=== PATIENT | male | born 1960 | race Caucasian/White ===

== ENCOUNTER 2021-11-20 12:44 | Emergency (ER) | payer BC, SELFPAY ==
--- NOTE | ~2021-11-20 | XR_ITS ---
EXAMINATION: XR abdomen/kub 1V DATE: 11/20/2021 13:54 INDICATION: Kidney stone. TECHNIQUE: A supine view of the abdomen on 2 radiographs was obtained. COMPARISON: CT abdomen and pelvis 11/20/2021 FINDINGS: There are no dilated loops of bowel. There are phleboliths in the pelvis. The stones in dis emile left ureter and left kidney seen by CT are not visible. IMPRESSION: 1. No visible urolithiasis. Reviewed, dictated and finalized at location A. IMPRESSION: 1. No visible urolithiasis.
--- NOTE | ~2021-11-20 | CT_ITS ---
EXAMINATION: CT abdomen pelvis wo con DATE: 11/20/2021 13:36 INDICATION: Left flank pain. Scant urination. History of pancreatitis. TECHNIQUE: Computed tomography (CT) of the abdomen and pelvis was performed without intravenous contr ast. The dose-length product was 433.57 mGy-cm. Automated exposure control and iterative reconstructi on technique were employed. COMPARISON: CT dated 12/05/2017 FINDINGS: Lung bases are unremarkable. Heart size normal. No significant pleural or pericardial effus ion. There is a punctate calcification in the distal aspect of the left ureter, images 143-144. There is mild left hydronephrosis. There is moderate left perinephric and periureteral edema. There is non obstructing stones in the left kidney. There is a 3.5 cm low-density lesion in the left kidney, most likely benign cysts. No significant vascular abnormality. No lymphadenopathy. Nonobstructive bowel gas pattern. The liver, spleen, pancreas, adrenal glands and right kidney are unremarkable. There is osteoarthriti s of the hips. There are multiple lytic lesions of the pelvis and visualized aspects of the spine, navarrete spicious for metastatic disease or myeloma. IMPRESSION: 1. Punctate calcification measuring 2 mm distal aspect of the left ureter, suspicious for distal uret eral stone. Mild left hydronephrosis with periureteral and perinephric edema. Cannot exclude ascendin g urinary tract infection. 2: Innumerable lytic lesions of the spine and pelvis, suspicious for metastatic disease versus myelom a. Comment follow-up clinical evaluation. 3: Nonobstructing left nephrolithiasis. Reviewed, dictated and finalized at location A. IMPRESSION: 1. Punctate calcification measuring 2 mm distal aspect of the left ureter, susp icious for distal ureteral stone. Mild left hydronephrosis with periureteral an d perinephric edema. Cannot exclude ascending urinary tract infection. 2: Innumerable lytic lesions of the spine and pelvis, suspicious for metastatic disease versus myeloma. Comment follow-up clinical evaluation. 3: Nonobstructing left nephrolithiasis.
[2021-11-20 12:57] VITALS: BP 167/76; PULSE 76; RESP 14; TEMP 36.8; O2SAT 100
--- NOTE | 2021-11-20 13:15 | ED.GENADULT ---
HPI - General Adult General Chief complaint: Urogenital-Male Stated complaint: left flank pain Time Seen by Provider: 11/20/21 13:11 Source: RN notes reviewed History of Present Illness HPI narrative: Patient presents emergency room from home for left flank pain. Patient states pain began suddenly around 8 AM this morning. The pain is located left flank and radiates around down his left abdomen and testicle. The pain is described as sharp and stabbing. States that he did take Aleve at home for the pain with no relief denies any fevers or chills nausea vomiting diarrhea or any other symptoms denies any previous history of kidney stone Related Data Allergies Allergy/AdvReac Type Severity Reaction Status Date / Time No Known Allergies Allergy Verified 03/14/21 10:23 Review of Systems Review of Systems: Gen.: Denies fevers or chills ENT: Denies congestion Respiratory: Denies shortness of breath or cough CV: Denies chest pain or palpitations GI: D reports left lower quadrant abdominal pain denies nausea, emesis or diarrhea denies burning, urgency, frequency or hematuria Musculoskeletal: Reports left flank pain Neuro: Denies numbness, tingling, weakness or focal weakness Skin: Denies rash Except as documented, all other systems reviewed and negative PMFSH Past Medical History Medical History BPH w urinary obs/LUTS Chronic back pain History of pancreatitis Hyperlipidemia Lumbar spondylosis Pancreatitis Prediabetes Surgical History Surgical History History of appendectomy 1978 History of cataract surgery 2012 - / Family History Family History Other Family history of hypercholesterolemia Social History Social History Smoking status: Never smoker Alcohol intake: current Alcohol use details: drinks 2 beers occansionally Substance use: never Substance use type: does not use Gender identity (if verbalized by the patient): Male Exam Narrative: APPEARANCE: No acute distress, nontoxic, resting in bed EYES: EOMI HEENT: Normocephalic, atraumatic, OMM RESPIRATORY: No respiratory distress Clear to auscultation bilaterally with no rhonchi wheezing or rales. CARDIOVASCULAR: Regular rate and rhythm without murmurs rubs or gallops. ABDOMINAL: Soft, nontender, nondistended, no rebound or guarding left flank tenderness MUSCULOSKELETAl: Moves all extremities. No clubbing, cyanosis or edema. NEURO: Awake and alert. Following commands, speech normal, no focal deficits SKIN:: Warm, dry. No rashes lesions or abrasions PSYCHIATRIC: Normal affect/mood, Course Course Emergency Course: Called and discussed with BONDING MACHINE OPERATOR for Dr. Emery regarding patient's presentation work-up we discussed the patient CT showing lytic lesions need for further outpatient work-up agrees with plan for discharge with follow-up as an outpatient Patient states pain is improved at this time I discussed with patient and family results of CT scan showing kidney stone as well as lytic lesions and need for follow-up for evaluation metastatic disease versus myeloma versus other patient is in agreement Discussed with patient results of workup and diagnosis. Discussed need for follow-up with primary care, proper use of medication, and reasons to return to the emergency department. Patient understands and agrees to current treatment plan Vital Signs Vital signs: Vital Signs Temperature 98.2 F 11/20/21 12:57 Pulse Rate 76 11/20/21 12:57 Respiratory Rate 14 11/20/21 12:57 Blood Pressure 167/76 H 11/20/21 12:57 Pulse Oximetry 100 11/20/21 12:57 Oxygen Delivery Room Air 11/20/21 12:57 Temperature 98.2 F 11/20/21 12:57 Pulse Rate 76 11/20/21 12:57 Respiratory Rate 14 11/20/21 12:57 Blood Pressure 167
[2021-11-20] MEDS: ONDANSETRON INJ 4 MG/2 ML VIAL IV PUSH (13:28)
[2021-11-20] MEDS: MORPHINE SULFATE (*CRX) 4 MG/ML INJ IV PUSH (13:28)
[2021-11-20] MEDS: SODIUM CHLORIDE 0.9% IV 1,000 ML 999 ML IV CONT (13:28)
[2021-11-20 13:44] LABS: Basophils Percent Auto 0.2 % (0.2-1.2); Hematocrit 43.6 % (42.0-52.0); Hemoglobin 14.7 g/dL (14.0-18.0); Immature Granulocyte Absolute 0.04 K/mm3 (0.00-0.031); Immature Granulocyte Percent A 0.4 % (0-0.5); Lymphocytes Absolute Auto 1.59 K/mm3 (0.9-3.2); Lymphocytes Percent Auto 14.8 % (18.3-44.2); Mean Corpuscular HGB Conc 33.7 g/dl (32-36); Mean Corpuscular Volume 94.8 fl (80-100); Mean Platelet Volume 10.5 fl (7.4-10.4); Monocytes Absolute Auto 0.7 K/mm3 (0.1-0.6); Monocytes Percent Auto 6.6 % (2.6-8.5); Neutrophils Absolute Auto 8.4 K/mm3 (1.3-6.7); Platelet Count Result 174 k/mm3 (150-375); Red Cell Distribution Width 13.2 % (11.5-14.5); White Blood Count 10.8 K/mm3 (4.5-10.0)
[2021-11-20 13:56] LABS: Alanine Aminotransferase 23 U/L (6-50); Albumin Level 4.1 g/dL (3.5-5.1); Alkaline Phosphatase 75 U/L (38-126); Anion Gap 8 mmol/L (8-16); Aspartate Amino Transferase 26 U/L (17-59); Bilirubin,Total 1.4 mg/dL (0.2-1.3); Blood Urea Nitrogen 15 mg/dL (9-20); Calcium 8.6 mg/dL (8.4-10.2); Carbon Dioxide 24 mmol/L (22-30); Chloride 104 mmol/L (98-107); Estimated CRCL calculation 92 ml/min; Estimated Glomerular Filt Rate > 60; Glucose 106 mg/dL (65-110); Potassium 3.8 mmol/L (3.4-5.0); Sodium 136 mmol/L (137-145)
[2021-11-20 14:00] LABS: Appearance Urine Clear (Clear); Bilirubin Urine Negative (Negative); Color Urine Yellow (Yellow); Glucose Urine UA Negative (Negative); Ketones Urine Negative (Negative); Leukocyte Esterase Ur Negative LEU/UL (Negative); Nitrate Urine Negative (Negative); Protein Urine Negative (Negative); Specific Grav Ur <= 1.005 (1.001-1.035); Urobilinogen Urine 0.2 mg/dL (<2.0); pH Urine 5.5 (5.0-9.0)
[2021-11-20 14:04] LABS: Add Urine Microscopic? YES; Blood Urine Trace-Intact (Negative)
[2021-11-20 14:08] LABS: Mucus Urine Rare /lpf; RBC Urine 0-2 /hpf (0-2); Squamous Epithelial Cell Urine Rare /hpf (Few); WBC Urine 0-3 /hpf
[2021-11-20] MEDS: TAMSULOSIN HCL 0.4 MG CAPSULE PO (14:39)
[2021-11-20] MEDS: KETOROLAC 30 MG/ML VIAL (*BKC) IV PUSH (14:44)
[2021-11-20 15:28] VITALS: BP 138/78; PULSE 88; RESP 16; O2SAT 98
== END 2021-11-20 15:44 | disposition home or self-care (01) ==
PROVIDERS: Emergency Provider Emergency Medicine; PCP Family Medicine
DX: N13.2 Hydronephrosis with renal and ureteral calculous obstruction (principal); N40.1 Benign prostatic hyperplasia with lower urinary tract symptoms; N13.8 Other obstructive and reflux uropathy; E78.5 Hyperlipidemia, unspecified; R73.03 Prediabetes; Z98.42 Cataract extraction status, left eye; Z98.41 Cataract extraction status, right eye
CPT/HCPCS: 36415; 74018; 74176; 80053; 81001; 85025; 96361; 96374; 96375; 99284; A9270; J1885; J2270; J2405; J7030

== ENCOUNTER 2021-11-23 22:42 | Emergency (ER) | payer BC, SELFPAY ==
--- NOTE | ~2021-11-23 | CT_ITS ---
EXAMINATION: CT abdomen pelvis wo con DATE: 11/24/2021 00:13 INDICATION: Left flank pain TECHNIQUE: Computed tomography (CT) of the abdomen and pelvis was performed without intravenous contr ast. The dose-length product (DLP) was 1236.10 mGy-cm. Automated exposure control and iterative recon struction technique were employed. COMPARISON: 11/20/2021, 12/05/2017 FINDINGS: There is a small sliding hiatal hernia. A stable 4 mm nodule of the left lower lobe is cons istent with old granulomatous disease. The heart size is normal. The liver, spleen, pancreas, gallbla dder, and adrenal glands are normal. The right kidney is unremarkable. There are stones in the left r enal pelvis measuring up to 11 mm. There is mild left hydroureteronephrosis continuing into a subtle stone at the ureterovesicular junction. There is periureteral and perinephric fat stranding. There is a 3.0 cm cyst of the left kidney. No pathologically enlarged abdominal or pelvic lymph nodes are sadie ntified. There is no free intraperitoneal gas or evidence of bowel obstruction. There is mild lumbar spondylosis. IMPRESSION: 1. Subtle stone at the left ureterovesicular junction causing mild left hydroureteronephrosis and 11 mm stone in left renal pelvis. Periureteral and perinephric fat stranding may reflect superimposed py elonephritis and urinary tract infection. Reviewed, dictated and finalized at location A. IMPRESSION: 1. Subtle stone at the left ureterovesicular junction causing mild left hydrour eteronephrosis and 11 mm stone in left renal pelvis. Periureteral and perinephr ic fat stranding may reflect superimposed pyelonephritis and urinary tract infe ction.
[2021-11-23 22:44] VITALS: BP 182/81; PULSE 81; RESP 16; TEMP 36.3; O2SAT 100
[2021-11-23 23:00] LABS: Basophils Percent Auto 0.4 % (0.2-1.2); Hematocrit 41.7 % (42.0-52.0); Hemoglobin 14.1 g/dL (14.0-18.0); Immature Granulocyte Absolute 0.02 K/mm3 (0.00-0.031); Immature Granulocyte Percent A 0.2 % (0-0.5); Lymphocytes Absolute Auto 1.19 K/mm3 (0.9-3.2); Lymphocytes Percent Auto 14.1 % (18.3-44.2); Mean Corpuscular HGB Conc 33.8 g/dl (32-36); Mean Corpuscular Hemoglobin 32.3 pg (26-34); Mean Corpuscular Volume 95.6 fl (80-100); Mean Platelet Volume 10.3 fl (7.4-10.4); Monocytes Absolute Auto 0.7 K/mm3 (0.1-0.6); Monocytes Percent Auto 8.3 % (2.6-8.5); Neutrophils Absolute Auto 6.5 K/mm3 (1.3-6.7); Platelet Count Result 163 k/mm3 (150-375); Red Blood Count 4.36 M/mm3 (4.6-6.20); Red Cell Distribution Width 13.2 % (11.5-14.5); White Blood Count 8.4 K/mm3 (4.5-10.0)
[2021-11-23 23:09] LABS: Appearance Urine Clear (Clear); Bilirubin Urine Negative (Negative); Blood Urine Trace-lysed (Negative); Color Urine Yellow (Yellow); Glucose Urine UA Negative (Negative); Ketones Urine Negative (Negative); Leukocyte Esterase Ur Negative LEU/UL (Negative); Nitrate Urine Negative (Negative); Protein Urine Negative (Negative); Specific Grav Ur <= 1.005 (1.001-1.035); Urobilinogen Urine 0.2 mg/dL (<2.0); pH Urine 5.5 (5.0-9.0)
[2021-11-23 23:10] LABS: Alanine Aminotransferase 20 U/L (6-50); Albumin Level 4.1 g/dL (3.5-5.1); Alkaline Phosphatase 75 U/L (38-126); Anion Gap 7 mmol/L (8-16); Aspartate Amino Transferase 25 U/L (17-59); Bilirubin,Total 1.1 mg/dL (0.2-1.3); Blood Urea Nitrogen 16 mg/dL (9-20); Calcium 9.1 mg/dL (8.4-10.2); Carbon Dioxide 28 mmol/L (22-30); Chloride 101 mmol/L (98-107); Estimated CRCL calculation 53 ml/min; Estimated Glomerular Filt Rate 44; Glucose 128 mg/dL (65-110); Potassium 3.9 mmol/L (3.4-5.0); Sodium 136 mmol/L (137-145)
[2021-11-23 23:19] VITALS: O2SAT 97
[2021-11-23 23:23] LABS: Mucus Urine Rare /lpf; RBC Urine 0-2 /hpf (0-2); WBC Urine 0-3 /hpf
[2021-11-23 23:30] VITALS: O2SAT 98
[2021-11-23 23:30] LABS: Add Urine Microscopic? YES
[2021-11-23 23:31] VITALS: BP 147/68; O2SAT 97
[2021-11-23 23:45] VITALS: O2SAT 97
[2021-11-24] VITALS (16 sets, daily range): BP systolic 122–137; BP diastolic 62–67; O2SAT 94–97
[2021-11-24] MEDS: MORPHINE SULFATE (*CRX) 4 MG/ML INJ IV PUSH (00:02)
--- NOTE | 2021-11-24 03:01 | ED.BACK ---
HPI - Back Pain/Injury General Chief Complaint: Abdominal Pain Stated Complaint: left flank pain, known kidney stone Time Seen by Provider: 11/23/21 23:39 History of Present Illness HPI Narrative: 61yoM p/w L flank pain, h/o recent kidney stone seen here, saw uro today and sx had all improved but several hours ago, pain came back feels exactly the same as before, and left lower back that seems to radiate to the pelvis. Tried taking ibuprofen but it did not help, he is out of the [place] from before. Related Data Allergies Allergy/AdvReac Type Severity Reaction Status Date / Time No Known Allergies Allergy Verified 11/23/21 23:20 Review of Systems Review of Systems: CONST: No fever. HEENT: No sore throat C/V: No chest pain RESP: No cough GI: Reports left flank/pelvic pain : No hematuria M/S: No joint pain. SKIN: No rash. NEURO: [No headache or focal numbness or weakness] PSYCH: [No depression] [facility] Past Medical History Medical History BPH w urinary obs/LUTS Chronic back pain History of pancreatitis Hyperlipidemia Lumbar spondylosis Pancreatitis Prediabetes Surgical History Surgical History History of appendectomy 1978 History of cataract surgery 2012/ Family History Family History Other Family history of hypercholesterolemia Social History Social History Smoking status: Never smoker Alcohol intake: current Alcohol use details: drinks 2 beers occansionally Substance use: never Substance use type: does not use Gender identity (if verbalized by the patient): Male Exam Narrative: EXAMINATION OF ORGAN SYSTEMS/BODY AREAS: Constitutional: Vital signs per nursing GENERAL: Appears uncomfortable in bed HEAD: Normal with no signs of head trauma. EYES: EOMI, conjunctiva normal ENT: Hearing grossly intact LUNGS: Nonlabored breathing. HEART: [Regular rate and rhythm] ABD: [Soft], [nontender to palpation] EXT: Normal range of motion SKIN: [No rashes or lesions.] NEURO: [Alert and oriented x 3. No gross focal sensory or strength deficits.] PSYCH: Normal affect Course Vital Signs Vital signs: Vital Signs Temperature 97.3 F L 11/23/21 22:44 Pulse Rate 81 11/23/21 22:44 Respiratory Rate 16 11/23/21 22:44 Blood Pressure 182/81 H 11/23/21 22:44 Pulse Oximetry 100 11/23/21 22:44 Temperature 97.3 F L 11/23/21 22:44 Pulse Rate 81 11/23/21 22:44 Respiratory Rate 16 11/23/21 22:44 Blood Pressure 125/62 11/24/21 02:46 Pulse Oximetry 94 11/24/21 02:46 MDM - Back Pain/Injury MDM Narrative Medical decision making narrative: ED COURSE AND MEDICAL DECISION MAKINyo male presenting to the emergency department for acute flank pain, symptoms are concerning for likely renal colic versus pyelonephritis. Urinalysis is ordered. Morphine 4mg ordered. CT scan of the abdomen/pelvis is ordered. Labs are remarkable for: negative UA, Cr slightly elevated. On reevaluation, the patient's pain has resolved and he would like to go home at this time. CT official radiology read still pending at this time, however patient was feeling well and he didn't want to stay for the results. Patient is strongly advised to return to the emergency department for any increasing pain not improving with medications, persistent nausea vomiting, fevers or chills or for any other concerns. Patient is comfortable with this plan and was discharged in fair condition. Procedures: Pulse oximetry interpretation - not hypoxic. Review of medical records. Lab Data Result diagrams: 11/23/21 22:50 11/23/21 22:50 Labs: Lab Results 11/23/21 11/23/21 11/23/21 Range/Units 22:50 22:50 22:59 WBC 8.4 (4.5-10.0) K/mm3 RBC 4.36 L (4.6-6.20) M/mm3 Hgb 14.
== END 2021-11-24 03:25 | disposition home or self-care (01) ==
PROVIDERS: Emergency Provider Emergency Medicine; PCP Family Medicine
DX: R10.9 Unspecified abdominal pain (principal); N13.2 Hydronephrosis with renal and ureteral calculous obstruction; N40.1 Benign prostatic hyperplasia with lower urinary tract symptoms; N13.8 Other obstructive and reflux uropathy; E78.5 Hyperlipidemia, unspecified; R73.03 Prediabetes; Z98.42 Cataract extraction status, left eye; Z98.41 Cataract extraction status, right eye
CPT/HCPCS: 36415; 74176; 80053; 81001; 85025; 96374; 99284; J2270

== ENCOUNTER 2021-11-28 11:39 | Outpatient (CLI) | payer BC, SELFPAY ==
[2021-11-28 16:44] LABS: Immunoglobulin A 103 mg/dL (70-400); Immunoglobulin G 1014 mg/dL (700-1600); Immunoglobulin M 43 mg/dL (40-230)
[2021-12-01 11:05] LABS: Kappa\\Lambda Light Chains 91.03 (0.26-1.65); Lambda Light Chain 7.7 mg/L (5.7-26.3)
[2021-12-01 21:06] LABS: Albumin 3.7 g/dL (3.8-4.8); Alpha 1 Globulin 0.5 g/dL (0.2-0.3); Alpha 2 Globulin 0.8 g/dL (0.5-0.9); Beta 1 Globulin 0.4 g/dL (0.4-0.6); Gamma Globulin 0.9 g/dL (0.8-1.7); Protein, Total 6.7 g/dL (6.1-8.1)
== END 2021-11-28 11:40 | disposition home or self-care (01) ==
LOC: ANHLAB 11:40
PROVIDERS: PCP Family Medicine; Visit Provider Internal Medicine Hematology & Oncology
DX: D72.9 Disorder of white blood cells, unspecified (principal)
CPT/HCPCS: 36415; 82784; 83883; 84155; 84165

== ENCOUNTER 2021-11-30 08:09 | Outpatient (CLI) | payer BC, SELFPAY ==
--- NOTE | ~2021-11-30 | XR_ITS ---
EXAMINATION: XR bone survey comp/metastic DATE: 11/30/2021 08:57 INDICATION: Plasma cell disorder. TECHNIQUE: 30 views of a skeletal survey were obtained. COMPARISON: CT chest, abdomen, and pelvis 11/30/2021 FINDINGS: There are small lytic lesions in the left humeral diaphysis and left scapula. There are mul tiple lytic lesions in the iliac bones. There is a small lytic lesion in proximal left femur. IMPRESSION: 1. Multiple lytic lesions of bone, consistent with multiple myeloma. Reviewed, dictated and finalized at location A.
--- NOTE | ~2021-11-30 | CT_ITS ---
EXAMINATION: CT abdomen pelvis wo/w con DATE: 11/30/2021 09:26 INDICATION: Renal lesion. TECHNIQUE: Computed tomography (CT) of the abdomen and pelvis was performed without and with 130 cc O mnipaque 350 intravenous contrast. The dose-length product was 1945.43 mGy-cm. Automated exposure con trol and iterative reconstruction technique were employed. COMPARISON: CT dated 11/25/2019 FINDINGS: Lung bases are unremarkable. Heart size normal. No significant pleural or pericardial effus ion. There are nonobstructing left renal stones. There is mild left hydronephrosis with periureteral and p erinephric edema. No obstructing stone or mass identified. Prostate gland mildly prominent. Bladder w all is mildly thickened. Cannot exclude ascending urinary tract infection. There is a 3 cm nonenhanci ng left renal lesion, consistent with a cyst. There is a smaller low-density lesion in the left kidne y posteriorly, also likely benign cysts. The liver, spleen, pancreas, adrenal glands are unremarkable. There are multiple lytic lesions of the lower thoracic and lumbar spine as well as the pelvis and proximal femurs. Gallbladder is present. N onobstructive bowel gas pattern. IMPRESSION: 1. Innumerable lytic lesions of the spine, pelvis and proximal femurs, most likely metastatic disease or myeloma. Correlate for clinical history of malignancy. 2: Nonobstructing left nephrolithiasis. Mild left hydroureteronephrosis with perinephric and periuret eral edema. No obstructing stone or mass. Bladder wall mildly thickened. Cannot exclude cystitis with ascending urinary tract infection. 3: Left renal cysts. Reviewed, dictated and finalized at location B. IMPRESSION: 1. Innumerable lytic lesions of the spine, pelvis and proximal femurs, most lik summer metastatic disease or myeloma. Correlate for clinical history of malignancy . 2: Nonobstructing left nephrolithiasis. Mild left hydroureteronephrosis with pe rinephric and periureteral edema. No obstructing stone or mass. Bladder wall mi ldly thickened. Cannot exclude cystitis with ascending urinary tract infection. 3: Left renal cysts.
--- NOTE | ~2021-11-30 | CT_ITS ---
EXAMINATION: CT diagnostic chest w con DATE: 11/30/2021 13:53 INDICATION: SOB TECHNIQUE: Computed tomography (CT) of the chest was performed with 100 mL Omnipaque-350 intravenous contrast. Additional 3D reconstructions utilizing coronal maximum intensity projection (MIP) were per formed. Automated exposure control and iterative reconstruction technique were employed. The dose-juanita gth product was 333.52 mGy-cm. COMPARISON: None FINDINGS: A few 3 mm or smaller scattered bilateral pulmonary nodules. No pneumonia, pulmonary edema, pleural e ffusion or pneumothorax. Heart size is normal. No pericardial effusion. Thoracic aorta is normal in c aliber with no dissection. No pathologically enlarged thoracic lymphadenopathy. Small sliding-type hi atal hernia. 3 cm cyst at the upper pole of the left kidney. There are numerous scattered small lytic bone lesions in the spine, ribs, sternum and bilateral scapulae suspicious for multiple myeloma. IMPRESSION: 1. No acute cardiopulmonary disease. 2. Several scattered 3 mm or smaller bilateral pulmonary nodules. If the patient is low risk for lung cancer, no follow-up is needed. If the patient is high risk (i.e., history of smoking or asbestos or significant radiation exposure), optional follow-up chest CT could be considered at 12 months. 3. Numerous scattered small lytic bone lesions suspicious for multiple myeloma. Reviewed, dictated and finalized at location A. IMPRESSION: 1. No acute cardiopulmonary disease. 2. Several scattered 3 mm or smaller bilateral pulmonary nodules. If the patien t is low risk for lung cancer, no follow-up is needed. If the patient is high r isk (i.e., history of smoking or asbestos or significant radiation exposure), o ptional follow-up chest CT could be considered at 12 months. 3. Numerous scattered small lytic bone lesions suspicious for multiple myeloma.
== END 2021-11-30 08:10 | disposition home or self-care (01) ==
PROVIDERS: PCP Family Medicine; Referring Provider Internal Medicine Hematology & Oncology; Visit Provider Nurse Practitioner
DX: R91.8 Other nonspecific abnormal finding of lung field (principal); N20.0 Calculus of kidney; N28.1 Cyst of kidney, acquired
CPT/HCPCS: 71260; 74178; 77075; Q9967

== ENCOUNTER 2021-12-12 00:26 | Day surgery (SDC) | payer BC, SELFPAY ==
[2021-12-11 16:31] VITALS: BMI 31.6
--- NOTE | ~2021-12-12 | BM_ITS ---
EXAMINATION: CCL bone marrow asp w bx diag DATE: 12/12/2021 09:33 INDICATION: Lytic bone lesion of hip. TECHNIQUE: A time-out was performed to verify the patient's name, date of , and procedure to b e performed. The procedure including the risks, benefits, and alternatives was discussed with the pat ient. Risks discussed included bleeding and infection. The patient understood the risks and agreed to proceed. The skin overlying the left ilium was prepped and draped in usual sterile fashion. Anesth etic was administered with 1% lidocaine subcutaneously. Moderate sedation was achieved with 1 mg Vers ed IV and 50 mcg fentanyl IV. An 11 gauge needle was inserted into the ilium with fluoroscopic adriana nce. Bone marrow was aspirated. An 8 gauge needle was then inserted into the ilium with fluoroscopic guidance. A core bone marrow biopsy was obtained. There were no immediate complications. Fluoroscopy exposure time was 0.1 minutes. The total number of images was 10. FINDINGS: Real-time fluoroscopy demonstrates a marker overlying the left posterior superior iliac spi ne. IMPRESSION: 1. Fluoro-guided bone marrow aspiration. 2. Fluoro-guided bone marrow core biopsy. Reviewed, dictated and finalized at location A.
[2021-12-12 07:29] VITALS: BP 136/72; PULSE 56; RESP 14; TEMP 36.4; O2SAT 99; BMI 31.5
[2021-12-12 07:36] LABS: Basophils Percent Auto 0.6 % (0.2-1.2); Hematocrit 44.4 % (42.0-52.0); Hemoglobin 15.1 g/dL (14.0-18.0); Immature Granulocyte Absolute 0.03 K/mm3 (0.00-0.031); Immature Granulocyte Percent A 0.5 % (0-0.5); Lymphocytes Absolute Auto 1.66 K/mm3 (0.9-3.2); Lymphocytes Percent Auto 25.7 % (18.3-44.2); Mean Corpuscular Volume 94.1 fl (80-100); Mean Platelet Volume 10.9 fl (7.4-10.4); Monocytes Absolute Auto 0.4 K/mm3 (0.1-0.6); Monocytes Percent Auto 6.7 % (2.6-8.5); Neutrophils Absolute Auto 4.3 K/mm3 (1.3-6.7); Neutrophils Percent Auto 66.5 % (45.5-73.1); Platelet Count Result 199 k/mm3 (150-375); Red Blood Count 4.72 M/mm3 (4.6-6.20); White Blood Count 6.5 K/mm3 (4.5-10.0)
--- NOTE | 2021-12-12 07:44 | WPDMODSED ---
Moderate Sedation Note-Pt Data Patient Data Diagnosis: Multiple myeloma. Present Complaint: Multiple myeloma. Procedure to be performed/Plan: Fluoro-guided bone marrow biopsy of ilium. Allergies Allergy/AdvReac Type Severity Reaction Status Date / Time No Known Allergies Allergy Verified 12/12/21 07:27 Home Medications Medication Instructions Recorded Confirmed Type atorvastatin 20 mg tablet 20 mg PO QHS #90 tabs 06/01/21 12/12/21 Rx ibuprofen 600 mg tablet 600 mg PO TID PRN pain #14 tabs 11/20/21 12/11/21 Rx ondansetron 4 mg disintegrating 4 mg PO Q6H PRN nausea and 11/20/21 12/11/21 Rx tablet vomiting #10 tabs hydrocodone 5 mg-acetaminophen 325 1 tablet PO Q6H PRN pain #30 tabs 11/24/21 12/11/21 Rx mg tablet tamsulosin 0.4 mg capsule (Flomax) 0.4 mg PO DAILY #30 caps 11/24/21 12/11/21 Rx Fish Oil 1,290 mg PO DAILY 12/11/21 12/12/21 History cholecalciferol (vitamin D3) 125 125 mcg PO DAILY 12/11/21 12/12/21 History mcg (5,000 unit) tablet (Vitamin D3) Sedation/Anesthesia: No previous sedation/anesthesia problems (including family history). [facility] Past Medical History Medical History BPH w urinary obs/LUTS Chronic back pain History of pancreatitis Hyperlipidemia Lumbar spondylosis Pancreatitis Prediabetes Surgical History Surgical History History of appendectomy 1978 History of cataract surgery 2012 - b/l Family History Family History Other Family history of hypercholesterolemia Social History Social History Smoking status: Never smoker Second hand tobacco smoke exposure: No ( not really ) Alcohol intake: current Drinks per week: 1 Alcohol use details: occasional Substance use: never Substance use type: does not use Living arrangements: with family Gender identity (if verbalized by the patient): Male Spiritual care concerns: No Agree to blood products: Yes Mod Sed Physical Exam Physical Exam Pre Procedural Exam: Normal: Appearance, Lungs, Heart Rate, Heart Rhythm and Abdomen Hours since solid foods: 12 Hours since liquid intake: 12 Mallampati Classification: class II Internal Medicine - PN: Obj Da Vital Signs Vital Signs: Vital Signs - 24 hr 12/12/21 07:29 Temperature 36.4 C Pulse Rate 56 L Respiratory Rate 14 Blood Pressure 136/72 Pulse Oximetry 99 Oxygen Delivery Room Air Labs CBC & Chem 7: 12/12/21 07:27 Labs: Laboratory Results - last 24 hr 12/12/21 07:27 WBC 6.5 RBC 4.72 Hgb 15.1 Hct 44.4 MCV 94.1 MCH 32.0 MCHC 34.0 RDW 13.0 Plt Count 199 MPV 10.9 H Immature Gran % (Auto) 0.5 Neut % (Auto) 66.5 Lymph % (Auto) 25.7 [place] % (Auto) 6.7 Eos % (Auto) 0.0 Baso % (Auto) 0.6 Lymph # (Auto) 1.66 [place] # (Auto) 0.4 Eos # (Auto) 0.0 Baso # (Auto) 0.0 Abs Immat Gran (auto) 0.03 Absolute Neuts (auto) 4.3 Absolute Nucleated RBC 0.0 Nucleated RBC % 0.0 ASA Classification/Sedation ASA Classification/Sedation ASA Class: II Emergent: No Risks: Risks, benefits and alternatives explained and patient/family accepted plan for sedation. Patient re-evaluated immediately prior to sedation.
[2021-12-12 07:47] LABS: INR 1.1; Prothrombin Time 13.8 Seconds (11.1-14.7)
[2021-12-12 08:30] VITALS: BP 136/78; RESP 14; O2SAT 100
[2021-12-12 08:45] VITALS: BP 122/65; PULSE 58; RESP 11; TEMP 36.7; O2SAT 99
[2021-12-12 09:00] VITALS: BP 125/69; PULSE 59; RESP 12; O2SAT 99
--- NOTE | 2021-12-12 09:47 | SUR.PHASEII ---
iv d/c tip intact. d/c education given, written instructions given to take home. patient verbalizes understanding, all questions and concerns address. patient taken via wheelchair to personal vehicle, driving home.
== END 2021-12-12 09:50 | disposition home or self-care (01) ==
PROVIDERS: PCP Family Medicine; Referring Provider Internal Medicine Hematology & Oncology; Visit Provider Radiology Diagnostic Radiology
DX: C90.00 Multiple myeloma not having achieved remission (principal); E78.5 Hyperlipidemia, unspecified; R73.03 Prediabetes; M47.816 Spondylosis without myelopathy or radiculopathy, lumbar region; Z79.891 Long term (current) use of opiate analgesic
CPT/HCPCS: 36415; 38222; 85025; 85610; 88184; 88185; 88305; 88307; 88311; 88313; 88360; J1642; J2250; J3010; J7040

== ENCOUNTER 2021-12-14 10:30 | Outpatient (CLI) | payer BC, SELFPAY ==
--- NOTE | ~2021-12-14 | XR_ITS ---
EXAMINATION: XR abdomen/kub 1V INDICATION: Left nephrolithiasis TECHNIQUE: Supine views of the abdomen were obtained on 2 radiographs. COMPARISON: CT, 11/30/2021 FINDINGS: The previously described stone in the left renal pelvis is not definitely identified althou gh stone appear to be low density on CT. There are multiple phleboliths of the pelvis. There is a que stionable stone in the distal left ureter. The bowel gas pattern is normal. IMPRESSION: 1. Possible stone of the distal left ureter. Reviewed, dictated and finalized at location F.
== END 2021-12-14 10:31 | disposition home or self-care (01) ==
PROVIDERS: PCP Family Medicine; Visit Provider Nurse Practitioner
DX: N20.0 Calculus of kidney (principal)
CPT/HCPCS: 74018

== ENCOUNTER 2022-01-08 08:01 | Outpatient (CLI) | payer BC, SELFPAY ==
--- NOTE | 2022-01-08 08:15 | ECG_ITS ---
Measurements Intervals [place] Rate: 60 P: 61 MT: 186 QRS: -7 QRSD: 96 T: 26 QT: 392 QTc: 392 Interpretive Statements SINUS RHYTHM EARLY PRECORDIAL R/S TRANSITION BASELINE ARTIFACT- I, II, III, AVR, AVL, AVF BORDERLINE ECG NO PREVIOUS ECG AVAILABLE FOR COMPARISON Electronically Signed On 01-08-2022 8:50:27 GREEN HIDE INSPECTOR by Brayan Sy D.O.
[2022-01-08 09:35] LABS: INR 1.1; Partial Thromboplastin Time 26.8 SECONDS (22.3-36.8); Prothrombin Time 13.9 Seconds (11.1-14.7)
== END 2022-01-08 08:02 | disposition home or self-care (01) ==
LOC: ANHSURGERY 08:04
PROVIDERS: PCP Family Medicine; Visit Provider Urology
DX: N20.0 Calculus of kidney (principal); E78.5 Hyperlipidemia, unspecified; Z01.818 Encounter for other preprocedural examination
CPT/HCPCS: 36415; 85610; 85730; 87086; 93005

== ENCOUNTER 2022-01-12 02:05 | Day surgery (SDC) | payer BC, SELFPAY ==
[2022-01-05 14:16] VITALS: BMI 31.6
--- NOTE | 2022-01-05 14:21 | PC.NURSE ---
Report to the Outpatient Waiting Room, entrance under the green pavilion located off [facility], at time 7:30 on date 01/12/22. Planned Procedure Time: 9:30. Time changes happen often and if your time is changed the preop area will call you the afternoon before. - You and your visitor will be asked to self-screen and do not enter if you have any COVID symptoms. - We encourage only one visitor and NO visitors under age 16 are allowed at this time. Your visitor will receive communication by the phone number that is given day of service. - The patient visitor is requested to social distance or may leave the building when not with patient due to restrictions. - A mask is OPTIONAL within the hospital. Patients may have clear liquids (water, carbonated beverages, clear teas, apple juice) until 3 hours prior to surgery with a maximum of 20 ounces. - No food from midnight until time of surgery - Infants may have breast milk until 4 hours before surgery, formula 6 hours prior to surgery. - Children will be allowed to drink immediately following surgery. If applicable, please bring a bottle or sippy cup to assist with drinking. Juice, water, soda, and popsicles are readily available. For infants on formula, please bring formula the day of surgery. Pacifiers are allowed. Take the following medications with a SIP of water the morning of surgery: ACYCLOVIR, PAIN PILL IF NEEDED Medications to discontinue per physician: N/A Date to take last dose: N/A Please no make-up, nail kinyarwanda, hairspray, perfume, deodorant, or body powder the day of surgery. No jewelry (including any body piercings) or valuables the day of surgery, leave them at home. Please take a shower or bath the night before, or the morning of, surgery with an antibacterial soap. Wear comfortable, loose fitting clothing. - Jewelry must be removed prior to entering the operating room. Rings and piercings that are not removed may be cut off. - The hospital will not accept responsibility for valuables. - Please leave all valuables, including medications, at home the day of surgery. If you are going home after surgery, a licensed non cdl driver must drive you home. - NO public transportation without another adult. - We recommend that an adult stay with you for 24 hours following discharge. - We also recommend that you do not drive, make important decision, drink alcoholic beverages, or take any drugs that were not prescribed by your health care provider for at least 24 hours after your discharge time. Follow any additional instructions given to you from your surgeon. If you or anyone in your household have experienced Covid symptoms in the past week, please notify your surgeon or the nurse liaison at the phone number below for possible testing. Telephone instructions given to PT - WHITNEY SIMS and asked if any additional questions and then verbalized understanding. Patient advised to call surgeon office or pre surgery nurse liaison [phone] if any additional questions.
--- NOTE | 2022-01-11 13:38 | WPDANESEPPF ---
Anes - Initial Pre Proc Eval Procedure: Operation Date: 01/12/22 08:30 Proposed Procedures p Left Extracorporeal Shock Wave Lithotripsy - Alireza Hughes MD Date/Time: 01/11/22 13:38 Surgeon: Alireza Hughes MD Pre Op Diagnosis: left ureteral stone Patient Data Age: 61 Gender: M Height: 1.78 m Weight: 99.8 kg Allergies Allergy/AdvReac Type Severity Reaction Status Date / Time No Known Allergies Allergy Verified 01/12/22 07:07 Home Medications Medication Instructions Recorded Confirmed Type hydrocodone 5 mg-acetaminophen 325 1 tablet PO Q6H PRN pain #30 tabs 11/24/21 01/05/22 Rx mg tablet acyclovir 400 mg tablet 400 mg PO DAILY 01/02/22 01/12/22 History sulfamethoxazole 400 1 tablet PO HS 01/02/22 01/05/22 History mg-trimethoprim 80 mg tablet atorvastatin 20 mg tablet 20 mg PO QHS #90 tabs 01/11/22 Rx Patient hx anesthesia problems: none Family hx anesthesia problems: none Results Review: All pre-operative results and documents have been reviewed as part of the pre-operative evaluation. [facility] Past Medical History Medical History BPH w urinary obs/LUTS Chronic back pain History of pancreatitis Hyperlipidemia Lumbar spondylosis Pancreatitis Prediabetes Surgical History Surgical History History of appendectomy 1978 History of cataract surgery 2012 - / Family History Family History Other Family history of hypercholesterolemia Social History Social History Smoking status: Never smoker Second hand tobacco smoke exposure: No ( not really ) Alcohol intake: current Drinks per week: 1 Alcohol use details: occasional Substance use: never Substance use type: does not use Living arrangements: with family Gender identity (if verbalized by the patient): Male Spiritual care concerns: No Agree to blood products: Yes Anes - Eval Final PreProcedure Day of Procedure 01/11/22 13:38 Patient weight: normal Heart: regular rate and rhythm Lungs: clear to auscultation Airway: Mallampati scale class II Neurological: alert and oriented Last oral intake: >/= 8 hours ASA classification: III Emergent: no Anesthetic plan: proceed Results Review: All pre-operative results and documents have been reviewed as part of the pre-operative evaluation. Informed Consent: The patient's anesthetic plan and its attendant risks and benefits were discussed with the patient/family/POA. Questions were solicited and answers provided to the satisfaction of the patient/family/POA.
--- NOTE | ~2022-01-12 | XR_ITS ---
EXAMINATION: XR abdomen/kub 1V INDICATION: Left nephrolithiasis TECHNIQUE: Supine views of the abdomen were obtained on three radiographs. COMPARISON: 12/14/2021, 11/20/2021 FINDINGS: A 3 mm calcification projects in the left pelvis at the expected location of the left urete rovesicular junction which could reflect a distal ureteral stone. There are multiple phleboliths of t he pelvis. The bowel gas pattern is normal. The visualized lung bases are clear. IMPRESSION: 1. Possible stone at the left ureterovesicular junction. Reviewed, dictated and finalized at location B. HER LOADER EQUIPMENT OPERATOR
[2022-01-12 06:50] VITALS: BP 134/68; PULSE 71; RESP 16; TEMP 36.8; O2SAT 99
--- NOTE | 2022-01-12 06:53 | WPDHPUPDATE1 ---
History and Physical Update Update Date/Time: 01/12/22 06:53 Stone if difficult to see on KUB this morning. If unable to clearly identify on fluroroscopy at time of ESWL, will do cystoscopy with retrograde pyelograph to localize. History and Physical has been reviewed, including an updated exam of the patient. There are NO changes in the patient's condition. Risks, benefits, and alternatives have been discussed and questions answered. Patient agrees to proceed with procedure.
[2022-01-12 07:09] VITALS: BMI 31.3
[2022-01-12] MEDS: LACTATED RINGERS 1,000 ML 30 ML IV CONT (07:15)
[2022-01-12] MEDS: ceFAZolin 2 GM/D5W 50 ML 2 GM/50 ML BAG IVPB (08:41)
--- NOTE | 2022-01-12 09:12 | W.PM.PROC2 ---
Procedure Note - Detailed Date of Procedure 01/12/22 Pre-op Diagnosis Left renal stone Post-op Diagnosis Same Procedure Performed cystoscopy, left retrograde pyelography and left ESWL Surgeon Alireza Hughes MD Anesthesia General Description of Procedure The patient was brought to the operative suite where he was placed in the supine position on the Dornier lithotripter table. Flexible cystoscopy was undertaken with a 16F flexible cystoscopy. There were no urethral strictures. The prostatic urethra estimated length was 1.5cm. There was mild obstruction of the prostatic urethra with no median lobe enlargement. The bladder mucosa was normal and there was a single, orthotopic ureteral orifice bilaterally. A 0.035 glidewire was advanced into the lef renal pelvis under fluoroscopy. An angiographic catheter was placed and retrograde pyelography was used to identify a clear filling defect in his left pelvis consistent with his renal pelvic stone. A total of 2500 shocks were delivered at a power setting of 4. The patient tolerated the procedure well and was taken to the recovery room in good condition. Estimated Blood Loss 0 Drains No Packing No Pathology None sent Complications No immediate complications Disposition PACU
[2022-01-12 09:44] VITALS: BP 146/74; PULSE 68; RESP 13; TEMP 36.1; O2SAT 100
[2022-01-12 09:59] VITALS: BP 139/78; PULSE 74; RESP 15; O2SAT 100
[2022-01-12 10:14] VITALS: BP 154/84; PULSE 64; RESP 15; O2SAT 100
[2022-01-12 10:25] VITALS: BP 159/80; PULSE 58; RESP 15
[2022-01-12 10:55] VITALS: BP 155/85; PULSE 55; RESP 15
== END 2022-01-12 11:18 | disposition home or self-care (01) ==
PROVIDERS: PCP Family Medicine; Visit Provider Urology
PROC: (CPT 50590; principal; 2022-01-12 08:30)
DX: N20.0 Calculus of kidney (principal); E78.5 Hyperlipidemia, unspecified
CPT/HCPCS: 50590; 74018; C1758; C1887; J0330; J0690; J1100; J2250; J2405; J2704; J3010; J7120; Q9966

== ENCOUNTER → 2022-02-01 10:53 | Outpatient (CLI) | payer BC, SELFPAY ==
--- NOTE | ~2022-02-01 | XR_ITS ---
XR abdomen/kub 1V 02/01/2022 11:18 INDICATION: Left-sided stones TECHNIQUE: KUB COMPARISON: 01/12/2022, 12/14/2021 and 11/20/2021 FINDINGS: Bowel gas pattern is normal. There is no evidence of free air, mass, organomegaly, ascites or obstruction. No abnormal calculi are seen. The bones appear intact. There are pelvic phlebolith s. The kidneys are obscured by bowel content. IMPRESSION: 1: No acute abdominal abnormality identified. Reviewed, dictated and finalized at location A. RINARY MICROBIOLOGIST
--- NOTE | ~2022-02-01 | US_ITS ---
US renal BI 02/01/2022 11:12 Procedure: Realtime transabdominal ultrasound of the kidneys and bladder. Indication: Ureteral stone. History of multiple myeloma. Comparison: CT dated 11/30/2021 Findings: Renal echotexture is normal bilaterally without hydronephrosis, contour deforming solid mas s or renal calculus. The right kidney measures 11.3 cm and left kidney measures 12.4 cm. There is a l eft renal cyst measuring 3.4 cm. Bladder within normal limits. Impression: 1: Left renal cyst measuring 3.4 cm. Reviewed, dictated and finalized at location A. TTER HAND Impression: 1: Left renal cyst measuring 3.4 cm.
== END ==
PROVIDERS: PCP Family Medicine; Visit Provider Urology
DX: N20.2 Calculus of kidney with calculus of ureter (principal); N28.1 Cyst of kidney, acquired
CPT/HCPCS: 74018; 76775

== ENCOUNTER 2022-02-09 01:07 | Day surgery (SDC) | payer BC, SELFPAY ==
[2022-02-06 14:15] VITALS: BMI 31.6
--- NOTE | 2022-02-06 14:17 | PC.NURSE ---
Report to the Outpatient Waiting Room, entrance under the green pavilion located off [facility], at time 0600 on date 02/09/22. Planned Procedure Time: 0730. Time changes happen often and if your time is changed the preop area will call you the afternoon before. - You and your visitor will be asked to self-screen and do not enter if you have any COVID symptoms. - Only one visitor is requested with a max of two and NO children visitors are allowed at this time. - The patient visitor may be requested to leave or wait in car when not with patient due to distancing restrictions. - A mask is optional within the hospital. Patients may have clear liquids (water, carbonated beverages, clear teas, apple juice) until 3 hours prior to surgery with a maximum of 20 ounces. - No food from midnight until time of surgery Take the following medications with a SIP of water the morning of surgery: ACYCLOVIR, ANTIBIOTIC Medications to discontinue per physician: N/A Date to take last dose: N/A Please no make-up, nail serbian, hairspray, perfume, deodorant, or body powder the day of surgery. No jewelry (including any body piercings) or valuables the day of surgery, leave them at home. Please take a shower or bath the night before, or the morning of, surgery with an antibacterial soap. Wear comfortable, loose fitting clothing. - Jewelry must be removed prior to entering the operating room. Rings and piercings that are not removed may be cut off. - The hospital will not accept responsibility for valuables. - Please leave all valuables, including medications, at home the day of surgery. If you are going home after surgery, a licensed tow bar driver must drive you home. - NO public transportation without another adult if you receive anesthesia. - We recommend that an adult stay with you for 24 hours following discharge. - We also recommend that you do not drive, make important decision, drink alcoholic beverages, or take any drugs that were not prescribed by your health care provider for at least 24 hours after your discharge time. Follow any additional instructions given to you from your surgeon. If you or anyone in your household have experienced Covid symptoms in the past week, please notify your surgeon or the nurse liaison at the phone number below for possible testing. Telephone instructions given to PT - ADIEL SIMS and asked if any additional questions and then verbalized understanding. Patient advised to call surgeon office or pre surgery nurse liaison [phone] if any additional questions.
--- NOTE | 2022-02-08 15:41 | PM.HPGS ---
History of Present Illness History of Present Illness Consent: Risks, benefits, and alternatives of placement of a Port-A-Cath have been discussed and questions answered. Patient agrees to proceed with procedure. Chief complaint: multiple myeloma Narrative: Tj Evangelista is a 61 year old male who is seen at the request of Dr. Canas because of his multiple myeloma. He is planning on receiving further chemotherapy for at least 4 cycles within repeat bone marrow biopsy. He is already on some infection prophylaxis but we will still give him Ancef 2 grams. his diagnosis apparently occurred after a bone marrow biopsy in November of this year. He has already received several rounds of chemotherapy. Review of Systems Constitutional: Constitutional: Reports no additional constitutional complaints, Reports fatigue and Denies malaise Eyes: Eyes: Denies change in vision and Denies loss of vision ENT: Reports Normal hearing present, Denies change in voice, Denies dizziness, Denies hoarseness and Denies sore throat Cardiovascular: Cardiovascular: Denies chest pain, Denies leg edema and Denies dyspnea Comments: History of hyperlipidemia on statin Respiratory: Respiratory: Denies cough, Denies dyspnea and Denies wheezing Gastrointestinal: Gastrointestinal: Denies hematochezia, Denies change in bowel habits and Denies heartburn Comments: history of previous appendectomy and episodes of pancreatitis. Genitourinary: Genitourinary: Denies urinary frequency and Denies urinary incontinence Comments: Hx. of nephrolithiasis. Musculoskeletal: Comments: Patient has known lytic lesions in the bones. Neurologic: Reports Normal hearing present, Denies confusion, Denies dizziness, Denies loss of vision, Denies memory loss and Denies seizure-like activity Psychiatric: Psychiatric: Denies confusion, Denies depression and Denies memory loss Endocrine: Endocrine: Denies cold intolerance and Reports fatigue Comments: Apparently has known prediabetes. Hematologic/Lymphatic: Hematologic/Lymphatic: Denies easy bleeding and Denies easy bruising Allergic/Immunologic: Allergic/Immunologic: Denies wheezing PMFSH Past Medical History Medical History BPH w urinary obs/LUTS Chronic back pain History of pancreatitis Hyperlipidemia Lumbar spondylosis Multiple myeloma Pancreatitis Prediabetes Surgical History Surgical History History of appendectomy 1977 History of cataract surgery 2012 - b/l Family History Family History Other Family history of hypercholesterolemia Social History Social History Smoking status: Never smoker Second hand tobacco smoke exposure: No ( not really ) Alcohol intake: current Drinks per week: 1 Alcohol use details: RARE Substance use: never Substance use type: does not use Living arrangements: with family Gender identity (if verbalized by the patient): Male Spiritual care concerns: No Agree to blood products: Yes Meds Home Medications and Allergies Home Medications Medication Instructions Recorded Confirmed Type acyclovir 400 mg tablet 400 mg PO BID 01/02/22 02/06/22 History atorvastatin 20 mg tablet 20 mg PO QHS #90 tabs 01/11/22 02/06/22 Rx dexamethasone 4 mg tablet See Rx Instructions .Route .COMPLEX 01/23/22 02/06/22 History lenalidomide 25 mg capsule See Rx Instructions .Route .COMPLEX 01/23/22 02/06/22 History (Revlimid) sulfamethoxazole 800 1 tablet PO QMWF 02/06/22 02/06/22 History mg-trimethoprim 160 mg tablet Allergies Allergy/AdvReac Type Severity Reaction Status Date / Time No Known Allergies Allergy Verified 02/06/22 14:12 Exam Const: General: cooperative, healthy appearing, no acute distress, well developed
--- NOTE | ~2022-02-09 | XR_ITS ---
XR chest port-a-cath/central DATE: 02/09/2022 08:36 INDICATION: Port-A-Cath insertion TECHNIQUE: Portable upright AP chest on 02/19/2022 at 0834 hours COMPARISON: 11/30/2021 CT chest FINDINGS: Right internal jugular Port-A-Cath catheter placement with tip overlying superior vena cava . No pneumothorax. No pleural effusion. The lungs are clear of infiltrate or consolidation. Normal he art size. No pulmonary vascular congestion is detected. No hilar or mediastinal enlargement. IMPRESSION: Right Port-A-Cath catheter placement in superior vena cava; no active cardiopulmonary dis ease Reviewed, dictated and finalized at Location A. Reviewed, dictated and finalized at location B. ECTOR AIR CARRIER IMPRESSION: Right Port-A-Cath catheter placement in superior vena cava; no acti ve cardiopulmonary disease
--- NOTE | ~2022-02-09 | XR_ITS ---
EXAMINATION: XR fl guide central line place DATE: 02/09/2022 08:37 INDICATION: Port catheter insertion TECHNIQUE: Single fluoroscopic image of the central chest was obtained during procedure performed by Dr. Hyman. Radiologist was not present for the imaging or procedure. The amount of fluoroscopy time used during this procedure was 0.6 minutes. COMPARISON: None. FINDINGS: Right internal jugular central venous port catheter with distal tip in the mid superior vena cava. Vi sualized portion of the lungs are clear. No pneumothorax. The visualized portion of the cardiomediast inal silhouette is normal. IMPRESSION: 1. Right internal jugular central venous port catheter tip in the mid superior vena cava. Reviewed, dictated and finalized at location A. [employer]
[2022-02-09 07:00] VITALS: BP 118/64; PULSE 60; RESP 16; TEMP 36.3; O2SAT 100
[2022-02-09] MEDS: LACTATED RINGERS 1,000 ML 30 ML IV CONT (07:00)
[2022-02-09] MEDS: KETOROLAC 15 MG/ML VIAL (*BKC) IV PUSH (07:00)
--- NOTE | 2022-02-09 07:08 | P.PNAN_ITS ---
Anes - Initial Pre Proc Eval Procedure: Operation Date: 02/09/22 07:30 Proposed Procedures p Insertion Rochelle Cath - Arnel Hyman MD Date/Time: 02/09/22 07:08 Surgeon: Arnel Hyman MD Pre Op Diagnosis: multiple myeloma Patient Data Age: 61 Gender: M Height: 1.78 m Weight: 100 kg Allergies Allergy/AdvReac Type Severity Reaction Status Date / Time No Known Allergies Allergy Verified 02/06/22 14:12 Home Medications Medication Instructions Recorded Confirmed Type acyclovir 400 mg tablet 400 mg PO BID 01/02/22 02/06/22 History atorvastatin 20 mg tablet 20 mg PO QHS #90 tabs 01/11/22 02/06/22 Rx dexamethasone 4 mg tablet See Rx Instructions .Route .COMPLEX 01/23/22 02/06/22 History lenalidomide 25 mg capsule See Rx Instructions .Route .COMPLEX 01/23/22 02/06/22 History (Revlimid) sulfamethoxazole 800 1 tablet PO QMWF 02/06/22 02/06/22 History mg-trimethoprim 160 mg tablet Patient hx anesthesia problems: none Family hx anesthesia problems: none Results Review: All pre-operative results and documents have been reviewed as part of the pre- operative evaluation. [facility] Past Medical History Medical History BPH w urinary obs/LUTS Chronic back pain History of pancreatitis Hyperlipidemia Lumbar spondylosis Multiple myeloma Pancreatitis Prediabetes Surgical History Surgical History History of appendectomy 1978 History of cataract surgery 2012/ Family History Family History Other Family history of hypercholesterolemia Social History Social History Smoking status: Never smoker Second hand tobacco smoke exposure: No ( not really ) Alcohol intake: current Drinks per week: 1 Alcohol use details: RARE Substance use: never Substance use type: does not use Living arrangements: with family Gender identity (if verbalized by the patient): Male Spiritual care concerns: No Agree to blood products: Yes Anes - Eval Final PreProcedure Day of Procedure 12/09/22 07:08 Patient weight: overweight Heart: regular rate and rhythm Lungs: clear to auscultation Airway: Mallampati scale class II Neurological: alert and oriented Last oral intake: >/= 8 hours ASA classification: III Emergent: no Anesthetic plan: proceed Anesthesia type and monitoring: general GIVS and standard monitoring Results Review: All pre-operative results and documents have been reviewed as part of the pre- operative evaluation. Informed Consent: The patient's anesthetic plan and its attendant risks and benefits were discussed with the patient/family/POA. Questions were solicited and answers provided to the satisfaction of the patient/family/POA.
--- NOTE | 2022-02-09 07:13 | WPDHPUPDATE1 ---
History and Physical Update Update Date/Time: 02/09/22 07:13 History and Physical has been reviewed, including an updated exam of the patient. There are NO changes in the patient's condition. Risks, benefits, and alternatives have been discussed and questions answered. Patient agrees to proceed with procedure.
[2022-02-09] MEDS: ceFAZolin 2 GM/D5W 50 ML 2 GM/50 ML BAG IVPB (07:29)
[2022-02-09] MEDS: BUPIVACAINE/EPINEPHRINE 0.5% 10 ML VIAL 20 ML INFILTRATE (07:52)
[2022-02-09] MEDS: HEPARIN SODIUM 5,000 UNITS/ML VIAL 5000 UNITS IRRIGATION (07:53)
--- NOTE | 2022-02-09 08:24 | W.PM.PROC2 ---
Procedure Note - Detailed Date of Procedure 02/09/22 Pre-op Diagnosis multiple myeloma Post-op Diagnosis Same Procedure Performed 1. Placement of Rochelle-cath. 2. Use of US for vascular access site selection and visualization of needle access to vein. Surgeon Arnel Hyman MD Caramel Candy Maker Helper Luis Miguel BROUSSARD.OR first responder Anesthesia Local (with 0.5% Marcaine with epinepherine) and Other (GIVS) Indications Patient is in need of long-term vascular access for treatment of his multiple myeloma. Findings Normal vascular anatomy of the right neck. Description of Procedure Patient was seen and marked in the pre-op area prior to coming to the OR. Patient was brought to the operating room. Patient was placed supine on the operating table and general IV sedation was induced. The nurse teletype or varitype keyboard operator provided And continuous monitoring, oxygen, and IV sedation or general anesthesia with IV sedation as was appropriate for the patient's condition. See anesthesia notes). Patient's head was carefully turned to the left side while in the supine position and the patient's entire neck and anterior chest on both sides was prepped and draped in the usual sterile fashion. Following this the appropriate time-out was completed confirming procedure and patient. We confirmed that all the needed equipment was present in the room including the vascular ultrasound probe in machine. Following this the ultrasound probe was draped into the field and using the probe we carefully identified the carotid artery and jugular vein on the right neck. I then saved an image of the vascular anatomy of the neck, which documented the selected vessels patency and transferred it from the ultrasound machine to the edupristine chart. I marked the skin directly over the right internal jugular vein. I then used an 11 blade knife to make a small thomas in the skin. Following this, using the continuous ultrasound guidance, a Cook needle was placed through the skin incision and on into this vein. I then was able to draw back good dark blood. Once this was completed a guidewire using a J-tip was advanced through the needle and then the needle and the guidewire cover were withdrawn. C-arm fluoroscopy was used to confirm that the guidewire was nicely in the central venous system. Once this was confirmed with the C - arm, I preceded on by making the pocket for the port on the patient's anterior right chest approximately 3 centimeters below the clavicle overlying the chest wall. Local anesthetic was infiltrated into the skin where there was a transverse incision marked out. Incision was made and we made a pocket inferior to the incision with just a little dissection superior. The Smart port was tried in the pocket and seemed to fit well. Following this the catheter which had been placed on a tunneling device was tunneled from the port site on the anterior right chest up to the right neck where the small incision had been made slightly larger with an #11 blade knife. Then the catheter was pulled through so that we would have 15 centimeters to put into the central venous system once the dilation took place. Following this we placed the dilator and sheath over the guidewire in the jugular vein and carefully dilated the tract into the central venous system. The guidewire and dilator were then removed, carefully covering the end of the sheath to prevent air embolus. The end of the catheter which had been removed from the tunneling device and the tip checked was then inserted into the sheath and into the neck. I then carefully pulled the 2 arms of the tear-away sheath away as the office assistant held the catheter in position with a DeBakey forceps. Following this we checked the position of the catheter with C-arm fluoroscopy confirming that the tip seemed to be in the distal superior vena cava near the junction with the right atrium. I felt that it was in good position and so the rest of the catheter was pulled down toward th
[2022-02-09 08:27] VITALS: BP 121/60; PULSE 70; RESP 16; O2SAT 99
[2022-02-09 08:50] VITALS: BP 134/61; PULSE 51; RESP 14
[2022-02-09 09:20] VITALS: BP 138/65; PULSE 67; RESP 14
== END 2022-02-09 09:34 | disposition home or self-care (01) ==
PROVIDERS: PCP Family Medicine; Visit Provider Surgery
PROC: (CPT 36561; principal; 2022-02-09 07:30)
DX: C90.00 Multiple myeloma not having achieved remission (principal); E78.5 Hyperlipidemia, unspecified; R73.03 Prediabetes
CPT/HCPCS: 36561; 76937; 77001; C1788; J0690; J1100; J1644; J1885; J2250; J2405; J2704; J3010; J7030; J7120

== ENCOUNTER → 2022-11-15 12:43 | Outpatient (CLI) | payer BC, SELFPAY ==
--- NOTE | ~2022-11-15 | XR_ITS ---
XR abdomen/kub 1V 11/15/2022 13:18 INDICATION: Left ureteral stone TECHNIQUE: KUB COMPARISON: 02/01/2022 FINDINGS: Bowel gas pattern is normal. There is no evidence of free air, mass, organomegaly, ascites or obstruction. No abnormal calculi are seen. There are pelvic phleboliths unchanged from prior vincent dy. The bones appear intact. IMPRESSION: 1: No acute abdominal abnormality identified. Reviewed, dictated and finalized at location L.
== END ==
PROVIDERS: PCP Urology; Visit Provider Urology
DX: N20.1 Calculus of ureter (principal)
CPT/HCPCS: 74018

== ENCOUNTER 2023-03-25 09:35 | Outpatient (CLI) | payer BC, SELFPAY ==
[2023-03-25 18:59] LABS: Cholesterol 217 mg/dL (0-200); HDL Direct 39 mg/dL; Triglycerides 127 mg/dL (<150)
[2023-03-25 19:10] LABS: LDL Cholesterol Direct 141 mg/dL
[2023-03-25 19:20] LABS: Vitamin D 25 Hydroxy 51.2 ng/mL
[2023-03-25 19:21] LABS: Hemoglobin A1C 5.7 % (<5.7)
[2023-03-25 19:31] LABS: Prostate Specific Antigen 2.2 ng/mL (< OR = 4.0)
== END 2023-03-25 09:36 | disposition home or self-care (01) ==
LOC: ANHGOSHLAB 09:36
PROVIDERS: PCP Family Medicine; Visit Provider Family Medicine
DX: R73.03 Prediabetes (principal); E78.5 Hyperlipidemia, unspecified; E53.8 Deficiency of other specified B group vitamins; E55.9 Vitamin D deficiency, unspecified; C90.00 Multiple myeloma not having achieved remission; Z13.29 Encounter for screening for other suspected endocrine disorder; Z12.5 Encounter for screening for malignant neoplasm of prostate
CPT/HCPCS: 36415; 80061; 82306; 82607; 83036; 84153; 84443; G0103

== ENCOUNTER 2024-03-26 10:22 | Outpatient (CLI) | payer BC, SELFPAY ==
[2024-03-26 18:23] LABS: Basophils Percent Auto 1.2 % (0.2-1.2); Hematocrit 43.1 % (42.0-52.0); Hemoglobin 14.6 g/dL (14.0-18.0); Immature Granulocyte Absolute 0.01 K/mm3 (0.00-0.031); Immature Granulocyte Percent A 0.4 % (0-0.5); Lymphocytes Absolute Auto 0.59 K/mm3 (0.9-3.2); Lymphocytes Percent Auto 23.4 % (18.3-44.2); Mean Corpuscular HGB Conc 33.9 g/dl (32-36); Mean Corpuscular Hemoglobin 34.2 pg (26-34); Mean Corpuscular Volume 100.9 fl (80-100); Mean Platelet Volume 11.2 fl (7.4-10.4); Monocytes Absolute Auto 0.3 K/mm3 (0.1-0.6); Monocytes Percent Auto 12.3 % (2.6-8.5); Neutrophils Absolute Auto 1.6 K/mm3 (1.3-6.7); Neutrophils Percent Auto 62.7 % (45.5-73.1); Platelet Count Result 100 k/mm3 (150-375); Red Blood Count 4.27 M/mm3 (4.6-6.20); Red Cell Distribution Width 14.5 % (11.5-14.5); White Blood Count 2.5 K/mm3 (4.5-10.0)
[2024-03-26 19:30] LABS: Alanine Aminotransferase 31 U/L (6-50); Albumin Level 4.1 g/dL (3.5-5.1); Alkaline Phosphatase 67 U/L (38-126); Anion Gap 6 mmol/L (4-12); Aspartate Amino Transferase 37 U/L (17-59); Bilirubin,Total 1.4 mg/dL (0.2-1.3); Blood Urea Nitrogen 9 mg/dL (9-20); Calcium 8.9 mg/dL (8.4-10.2); Carbon Dioxide 30 mmol/L (22-30); Chloride 105 mmol/L (98-107); Cholesterol 132 mg/dL (0-200); Estimated Glomerular Filt Rate > 60; Glucose 98 mg/dL (65-110); HDL Direct 44 mg/dL; Sodium 141 mmol/L (137-145); Triglycerides 81 mg/dL (<150)
[2024-03-26 19:42] LABS: LDL Cholesterol Direct 69 mg/dL
[2024-03-26 19:54] LABS: Vitamin D 25 Hydroxy 68.3 ng/mL
[2024-03-26 20:03] LABS: Prostate Specific Antigen 1.1 ng/mL (< OR = 4.0)
[2024-03-26 20:54] LABS: Hemoglobin A1C 5.3 % (<5.7)
== END 2024-03-26 10:23 | disposition home or self-care (01) ==
LOC: ANHGOSHLAB 10:23
PROVIDERS: PCP Family Medicine; Visit Provider Family Medicine
DX: R73.03 Prediabetes (principal); E78.5 Hyperlipidemia, unspecified; Z12.5 Encounter for screening for malignant neoplasm of prostate; Z00.00 Encounter for general adult medical examination without abnormal findings; I10 Essential (primary) hypertension; E53.8 Deficiency of other specified B group vitamins; E55.9 Vitamin D deficiency, unspecified
CPT/HCPCS: 36415; 80053; 80061; 82306; 82607; 83036; 84153; 84443; 85025; 85055; G0103